=== PATIENT | female | born 1970 | race Caucasian/White ===

== ENCOUNTER 2016-10-26 20:19 | Emergency (ER) | payer SELFPAY ==
--- NOTE | 2016-10-26 21:07 | ED NURSING NOTES ---
Clinical Report - Nurses [facility] [address] [place] [address] 10/26/2016 20:23 Patient: YURIY AVILES TRIAGE Triage time 20:28. Acuity: LEVEL 4. Chief Complaint: INJURY TO LEFT FOOT. Alert. PAVAN COMA SCORE: Pavan Coma Scale: 15- eyes open spontaneously (4); best verbal response- oriented x 4 (5); best motor response- obeys commands (6). --20:30 Artis Mullins R.N. 20:27 10/26/16. BP: 125/75. HR: 90. RR: 20. O2 saturation: 100% on room air. Temp: 98.2 F. Pain level now: 03/05. --20:30 Artis Mullins R.N. Chief Complaint: INJURY TO THE LEFT FOOT. --20:31 Artis Mullins R.N. Weight: 74.8 kg stated. Height/Length: 64 inches Per Patient. BMI: 28.3. --20:26 Artis Mullins R.N. Medications PredniSONE Oral 20 mg, daily (tapering ). --20:28 Artis Mullins R.N. Allergies PCN. --20:28 Artis Mullins R.N. History Arrived by private vehicle. Historian: patient. Accompanied by friend. This occurred just prior to arrival. ( puncture). PAST MEDICAL HX: Tetanus status: up-to-date. SOCIAL HX: Heavy tobacco smoker (cigarette)- 1-2 packs per day. History of heavy drug use: marijuana. No alcohol use. ( Denies HI/SI). SELF HARM ASSESSMENT: A self harm assessment was performed. The patient answered "no" to the question "Do you have thoughts of harming or killing yourself?" and "Are you here because you tried to hurt yourself?". FALL RISK ASSESSMENT: Fall risk assessment completed. No fall risk identified. NUTRITIONAL RISK ASSESSMENT: The nutritional risk assessment revealed no deficiencies. FUNCTIONAL ASSESSMENT: Functional assessment: no impairments noted. LEARNING NEEDS ASSESSMENT: The learning needs assessment revealed no barriers. --20:30 Artis Mullins R.N. ( pt states that she was working at home barefoot and stepped on a wire). --20:31 Artis Mullins R.N. PROBLEMS: Vaginitis. Otitis Externa. Laceration. Tetanus Status. Immunizations. Crohn's Disease. --20:28 Artis Mullins R.N. ADDITIONAL SURGERIES: Breast Augmentation. Facial surgery . Tonsillectomy. Tubal Ligation. --20:28 Artis Mullins R.N. Interventions ID band on patient. To treatment room. --20:30 Artis Mullins R.N. PHYSICAL ASSESSMENT To room via wheelchair. GENERAL / NEURO / PSYCH: Oriented X 4. Alert. SKIN: Skin is warm and dry. ( Patient has a piece of wire punctured into the bottom of her left foot). --20:32 Artis Mullins R.N. NURSING PROGRESS NOTES Reassurance given. Two patient identifiers checked. Call light placed in reach. Side rails up x 1. Bed placed in lowest position. Brakes of bed on. Patient ready for evaluation- chart flagged. Patient waiting for evaluation. --20:33 Artis Mullins R.N. 20:55 10/26/2016 Keflex (Cephalexin) PO 500 mg given. Allergies verified and confirmed 5 rights. --20:55 Artis Mullins R.N. 20:56 10/26/2016 TDAP IM 0.5 mL given. (Lot#: [id number], expiration date: 04/02/2018, Br[employer]her Tender: sanofi pasteur). Given in the left deltoid. Allergies verified and confirmed 5 rights. Vaccine information statement provided to the patient. --20:56 Artis Mullins R.N. ( 5: wound Irrigation Left foot; applied bacitracin and then bandaid). --21:19 Carissa Coffey. DISPOSITION / DISCHARGE Departure time: 21:22. Condition at departure: stable. No learning barriers present. Discharge instructions provided and reviewed with the patient. Reviewed medication(s) side effects, precautions, dosing and course information. Prescription(s) given to the patient. Treatments reviewed. Reviewed referrals for followup. Patient verbalized understanding. Written instructions provided in Tanzanian. The patient was discharged home and unaccompanied at time of discharge. She left the Emergency Department ambulatory and via (unknown). Driving (unknown). ( Patient walking without difficulty). --21:23 Artis Mullins R.N. 21:21 10/26/16. BP: 127/83 taken while standing. HR: 83. RR: 12 (regular and unlabored). O2 saturation: 98% on room air. --21:23 Artis Mullins R.N. Locked/Released at 10/26/2016 21:23 by Artis Mullins R.N.
--- NOTE | 2016-10-26 21:07 | ED ORDER SUMMARY ---
..... Patient: YURIY AVILES OrderSheet [facility] VisitID: [id number] [place] [address] 45y, F Registration Date/Time: 10/26/2016 ORDER SHEET Weight: 74.8 kg (stated) Allergies: PCN GENERAL ORDERS: Foot 3V Left Urgent (20:49 10/26/2016 EKoroleva P.A.-C) (Ack 20:57 Mauricio [facility] Sales Representative Printing) [facility] Wound Irrigation (and application of bacitracin / bandaid post irrigaiton (LEFT FOOT)) (20:59 10/26/2016 EKoroleva P.A.-C) (21:21 DDavis R.N.) MEDICATION ORDERS: Tdap IM 0.5 mL (NOW, per protocol) (20:48 10/26/2016 EKoroleva P.A.-C) (20:56 DDavis R.N.) Keflex PO 500 mg (NOW) (20:48 10/26/2016 EKoroleva P.A.-C) (20:55 DDavis R.N.) IV FLUIDS: ORDER SHEET NOTES: [Electronically signed by Artis Mullins R.N. (21:23 10/26/2016)] [Electronically signed by Breana OrdoñezA.-C (21:43 10/26/2016)] [Electronically locked/signed by Artis Mullins R.N. (21:23 10/26/2016)]
--- NOTE | 2016-10-26 21:07 | ED CLINICAL REPORT ---
Clinical Report - Physicians/Mid Levels [facility] [address] [place] [address] 10/26/2016 20:23 [id number] Time Seen: 20:50 Oct 26 2016. Arrived- By private vehicle. Historian- patient. HISTORY OF PRESENT ILLNESS Chief Complaint: Injury to the left foot. The injury happened just prior to arrival. The patient sustained a laceration. Patient is experiencing mild pain. Patient denies injury to the head. (Patient sustained a puncture wound from a coat wire prior to arrival.). REVIEW OF SYSTEMS The patient sustained a laceration. She complains of pain on weight bearing. All systems otherwise negative, except as recorded above. PAST HISTORY tdap about 5 years. She has not had a prior injury to the same area. SOCIAL HISTORY Current every day heavy tobacco smoker. History of drug use. No alcohol use. ADDITIONAL NOTES The nursing notes have been reviewed. PHYSICAL EXAM Vital Signs: 10/26/2016 20:27 BP: 125/75. HR: 90. RR: 20. O2 saturation: 100%. Temp: 98.2 F. Pain level now: 9/10. Appearance: Alert. No acute distress. Head: Head atraumatic. CVS: Normal heart rate and rhythm. Heart sounds normal. Respiratory: No respiratory distress. Breath sounds normal. Chest nontender. No decreased air movement or chest wall injury. Skin: Skin warm. Extremities: Left foot, plantar aspect. (mid foot small protrusion of wire from foot, no bleeding, good distal sensation and rom). Gait: Limping gait. Neuro, Vascular and Tendons: Vascular status intact. Sensation intact. Motor intact. LABS, X-RAYS, AND EKG Lt Foot X-ray: (no fb/ no fx mid foot at site of injury). PROGRESS AND PROCEDURES Removal of Soft Tissue Foreign Body: Time: Oct 26 2016. Time-out completed immediately before the procedure. The foreign body was metal. Located in the left foot. Prior to the procedure the risks, benefits and alternatives to the procedure were explained and consent was obtained. Local anesthesia provided using 1% lidocaine with epinephrine. Foreign body visualized and removed using hemostat. Wound irrigated. Dressing applied. Tetanus immunization given. Warnings provided. Course of Care: Patient here in the air with signs of left foot injury with a penetrating wound, metal in nature. Patient is very stable. No signs of acute infection. Patient with resolution of her symptoms after removal of such. Tolerated such well. Tetanus updated. Irrigated/ dressings applied. Patient is stable. Symptoms better. Patient/family counseled. Disposition: Discharged. CLINICAL IMPRESSION Removal of metal soft tissue foreign body to the left foot. Puncture wound present. INSTRUCTIONS Apply ice. Protect wound and keep wound area clean. Apply bacitracin twice daily. Elevate affected areas above chest level. Warnings: TETANUS: You were given a tetanus shot during your visit. Make a note for future reference. Prescription Medications: Cephalexin 500mg: take 1 tab orally every 6 hours for 7 days. No refills OTC Medications: Take OTC medications according to label instructions. Available over the counter. Acetaminophen (available over the counter): take according to label instructions. Motrin (available over the counter): take according to label instructions. Follow-up: Follow up with your doctor in our community hospital for wound check. (Electronically signed by Breana Ordoñez P.A.-C 10/26/2016 21:43)
--- NOTE | 2016-10-26 21:07 | ED CLINICAL REPORT ---
Clinical Report - Physicians/Mid Levels [facility] [address] [place] [address] 10/26/2016 20:23 [id number] Time Seen: 20:50 Oct 26 2016. Arrived- By private vehicle. Historian- patient. HISTORY OF PRESENT ILLNESS Chief Complaint: Injury to the left foot. The injury happened just prior to arrival. The patient sustained a laceration. Patient is experiencing mild pain. Patient denies injury to the head. (Patient sustained a puncture wound from a coat wire prior to arrival.). REVIEW OF SYSTEMS The patient sustained a laceration. She complains of pain on weight bearing. All systems otherwise negative, except as recorded above. PAST HISTORY tdap about 5 years. She has not had a prior injury to the same area. SOCIAL HISTORY Current every day heavy tobacco smoker. History of drug use. No alcohol use. ADDITIONAL NOTES The nursing notes have been reviewed. PHYSICAL EXAM Vital Signs: 10/26/2016 20:27 BP: 125/75. HR: 90. RR: 20. O2 saturation: 100%. Temp: 98.2 F. Pain level now: 9/10. Appearance: Alert. No acute distress. Head: Head atraumatic. CVS: Normal heart rate and rhythm. Heart sounds normal. Respiratory: No respiratory distress. Breath sounds normal. Chest nontender. No decreased air movement or chest wall injury. Skin: Skin warm. Extremities: Left foot, plantar aspect. (mid foot small protrusion of wire from foot, no bleeding, good distal sensation and rom). Gait: Limping gait. Neuro, Vascular and Tendons: Vascular status intact. Sensation intact. Motor intact. LABS, X-RAYS, AND EKG Lt Foot X-ray: (no fb/ no fx mid foot at site of injury). PROGRESS AND PROCEDURES Removal of Soft Tissue Foreign Body: Time: Oct 26 2016. Time-out completed immediately before the procedure. The foreign body was metal. Located in the left foot. Prior to the procedure the risks, benefits and alternatives to the procedure were explained and consent was obtained. Local anesthesia provided using 1% lidocaine with epinephrine. Foreign body visualized and removed using hemostat. Wound irrigated. Dressing applied. Tetanus immunization given. Warnings provided. Course of Care: Patient here in the air with signs of left foot injury with a penetrating wound, metal in nature. Patient is very stable. No signs of acute infection. Patient with resolution of her symptoms after removal of such. Tolerated such well. Tetanus updated. Irrigated/ dressings applied. Patient is stable. Symptoms better. Patient/family counseled. Disposition: Discharged. CLINICAL IMPRESSION Removal of metal soft tissue foreign body to the left foot. Puncture wound present. INSTRUCTIONS Apply ice. Protect wound and keep wound area clean. Apply bacitracin twice daily. Elevate affected areas above chest level. Warnings: TETANUS: You were given a tetanus shot during your visit. Make a note for future reference. Prescription Medications: Cephalexin 500mg: take 1 tab orally every 6 hours for 7 days. No refills OTC Medications: Take OTC medications according to label instructions. Available over the counter. Acetaminophen (available over the counter): take according to label instructions. Motrin (available over the counter): take according to label instructions. Follow-up: Follow up with [facility] doctor [facility]. (Electronically signed by Breana Ordoñez P.A.-C 10/26/2016 21:43)
--- NOTE | 2016-10-26 21:07 | ED ORDER SUMMARY ---
..... Patient: YURIY AVILES OrderSheet [facility] VisitID: [id number] [place] [address] 45y, F Registration Date/Time: 10/26/2016 ORDER SHEET Weight: 74.8 kg (stated) Allergies: PCN GENERAL ORDERS: Foot 3V Left Urgent (20:49 10/26/2016 EKoroleva P.A.-C) (Ack 20:57 Mauricio ER Press Setter) [facility] Wound Irrigation (and application of bacitracin / bandaid post irrigaiton (LEFT FOOT)) (20:59 10/26/2016 EKoroleva P.A.-C) (21:21 DDavis R.N.) MEDICATION ORDERS: Tdap IM 0.5 mL (NOW, per protocol) (20:48 10/26/2016 EKoroleva P.A.-C) (20:56 DDavis R.N.) Keflex PO 500 mg (NOW) (20:48 10/26/2016 EKoroleva P.A.-C) (20:55 DDavis R.N.) IV FLUIDS: ORDER SHEET NOTES: [Electronically signed by Artis Mullins R.N. (21:23 10/26/2016)] [Electronically signed by Breana OrdoñezA.-C (21:43 10/26/2016)] [Electronically locked/signed by Artis Mullins R.N. (21:23 10/26/2016)]
--- NOTE | 2016-10-26 21:07 | ED NURSING NOTES ---
Clinical Report - Nurses [facility] [address] [place] [address] 10/26/2016 20:23 Patient: YURIY AVILES TRIAGE Triage time 20:28. Acuity: LEVEL 4. Chief Complaint: INJURY TO LEFT FOOT. Alert. PAVAN COMA SCORE: Pavan Coma Scale: 15- eyes open spontaneously (4); best verbal response- oriented x 4 (5); best motor response- obeys commands (6). --20:30 Artis Mullins R.N. 20:27 10/26/16. BP: 125/75. HR: 90. RR: 20. O2 saturation: 100% on room air. Temp: 98.2 F. Pain level now: 03/05. --20:30 Artis Mullins R.N. Chief Complaint: INJURY TO THE LEFT FOOT. --20:31 Artis Mullins R.N. Weight: 74.8 kg stated. Height/Length: 64 inches Per Patient. BMI: 28.3. --20:26 Artis Mullins R.N. Medications PredniSONE Oral 20 mg, daily (tapering ). --20:28 Artis Mullins R.N. Allergies PCN. --20:28 Artis Mullins R.N. History Arrived by private vehicle. Historian: patient. Accompanied by friend. This occurred just prior to arrival. ( puncture). PAST MEDICAL HX: Tetanus status: up-to-date. SOCIAL HX: Heavy tobacco smoker (cigarette)- 1-2 packs per day. History of heavy drug use: marijuana. No alcohol use. ( Denies HI/SI). SELF HARM ASSESSMENT: A self harm assessment was performed. The patient answered "no" to the question "Do you have thoughts of harming or killing yourself?" and "Are you here because you tried to hurt yourself?". FALL RISK ASSESSMENT: Fall risk assessment completed. No fall risk identified. NUTRITIONAL RISK ASSESSMENT: The nutritional risk assessment revealed no deficiencies. FUNCTIONAL ASSESSMENT: Functional assessment: no impairments noted. LEARNING NEEDS ASSESSMENT: The learning needs assessment revealed no barriers. --20:30 Artis Mullins R.N. ( pt states that she was working at home barefoot and stepped on a wire). --20:31 Artis Mullins R.N. PROBLEMS: Vaginitis. Otitis Externa. Laceration. Tetanus Status. Immunizations. Crohn's Disease. --20:28 Artis Mullins R.N. ADDITIONAL SURGERIES: Breast Augmentation. Facial surgery . Tonsillectomy. Tubal Ligation. --20:28 Artis Mullins R.N. Interventions ID band on patient. To treatment room. --20:30 Artis Mullins R.N. PHYSICAL ASSESSMENT To room via wheelchair. GENERAL / NEURO / PSYCH: Oriented X 4. Alert. SKIN: Skin is warm and dry. ( Patient has a piece of wire punctured into the bottom of her left foot). --20:32 Artis Mullins R.N. NURSING PROGRESS NOTES Reassurance given. Two patient identifiers checked. Call light placed in reach. Side rails up x 1. Bed placed in lowest position. Brakes of bed on. Patient ready for evaluation- chart flagged. Patient waiting for evaluation. --20:33 Artis Mullins R.N. 20:55 10/26/2016 Keflex (Cephalexin) PO 500 mg given. Allergies verified and confirmed 5 rights. --20:55 Artis Mullins R.N. 20:56 10/26/2016 TDAP IM 0.5 mL given. (Lot#: [id number], expiration date: 04/02/2018, Product Designer: sanofi pasteur). Given in the left deltoid. Allergies verified and confirmed 5 rights. Vaccine information statement provided to the patient. --20:56 Artis Mullins R.N. ( 5: wound Irrigation Left foot; applied bacitracin and then bandaid). --21:19 Carissa Coffey. DISPOSITION / DISCHARGE Departure time: 21:22. Condition at departure: stable. No learning barriers present. Discharge instructions provided and reviewed with the patient. Reviewed medication(s) side effects, precautions, dosing and course information. Prescription(s) given to the patient. Treatments reviewed. Reviewed referrals for followup. Patient verbalized understanding. Written instructions provided in German. The patient was discharged home and unaccompanied at time of discharge. She left the Emergency Department ambulatory and via (unknown). Driving (unknown). ( Patient walking without difficulty). --21:23 Artis Mullins R.N. 21:21 10/26/16. BP: 127/83 taken while standing. HR: 83. RR: 12 (regular and unlabored). O2 saturation: 98% on room air. --21:23 Artis Mullins R.N. Locked/Released at 10/26/2016 21:23 by Artis Mullins R.N.
--- NOTE | 2016-10-26 21:33 | DIAGNOSTIC IMAGING REPORT ---
PROCEDURE: XR FOOT 3 VIEWS - LEFT INDICATION: Stepped on wire. TECHNIQUE: Four views . COMPARISON: None. FINDINGS: Osseous structures, joint spaces and soft tissues are normal. IMPRESSION: 1. Normal left foot.
--- NOTE | 2016-10-26 21:44 | ED MAR SUMMARY ---
..... Medication Administration Record [facility] [address] [place] [address] Patient: YURIY AVILES Visit ID: [id number] 45y, F Weight: 74.8 kg Height/Length: 64 in BMI: 28.3 ALLERGIES: PCN Given 20:55 10/26/2016 Artis Mullins R.N. Medication Administered: KEFLEX [PO] (CEPHALEXIN), Dose: 500 mg PO. Medication Ordered: Keflex PO 500 mg (NOW). Given 20:56 10/26/2016 Artis Mullins RCurtisN. Medication Administered: TDAP [IM], Dose: 0.5 mL IM. Medication Ordered: Tdap IM 0.5 mL (NOW, per protocol).
--- NOTE | 2016-10-26 21:44 | ED MED RECONCILIATION SUMMARY ---
Patient: YURIY AVILES Medication Reconciliation Report [facility] VisitID: [id number] [place] [address] 45y, F Registration Date/Time: 10/26/2016 Weight: 74.8 kg Height/Length: 64 in. BMI: 28.3 ALLERGIES: PCN The patient's Home Medications are listed below: THE FOLLOWING MEDICATIONS NEED TO BE RECONCILED: PredniSONE Oral 20 mg, daily, tapering The source(s) of the original Home Medication information: Not obtained. The following Medications were given to the patient in the Emergency Department: Keflex [PO] PO 500 mg, administered: 10/26/2016 8:55:00 PM TDAP [IM] IM 0.5 mL, administered: 10/26/2016 8:56:00 PM The following Medications were prescribed to the patient: Take OTC medications according to label instructions. Available over the counter. -- Breana Ordoñez, P.A.-C Acetaminophen (available over the counter): take according to label instructions. -- Breana Ordoñez, P.A.-C Motrin (available over the counter): take according to label instructions. -- Breana Ordoñez, P.A.-C Cephalexin 500mg: take 1 tab orally every 6 hours for 7 days. No refills -- Breana Ordoñez, P.A.-C
--- NOTE | 2016-10-26 21:44 | ED MED RECONCILIATION SUMMARY ---
Patient: YURIY AVILES Medication Reconciliation Report [facility] VisitID: [id number] [place] [address] 45y, F Registration Date/Time: 10/26/2016 Weight: 74.8 kg Height/Length: 64 in. BMI: 28.3 ALLERGIES: PCN The patient's Home Medications are listed below: THE FOLLOWING MEDICATIONS NEED TO BE RECONCILED: PredniSONE Oral 20 mg, daily, tapering The source(s) of the original Home Medication information: Not obtained. The following Medications were given to the patient in the Emergency Department: Keflex [PO] PO 500 mg, administered: 10/26/2016 8:55:00 PM TDAP [IM] IM 0.5 mL, administered: 10/26/2016 8:56:00 PM The following Medications were prescribed to the patient: Take OTC medications according to label instructions. Available over the counter. -- Breana Ordoñez, P.A.-C Acetaminophen (available over the counter): take according to label instructions. -- Breana Ordoñez, P.A.-C Motrin (available over the counter): take according to label instructions. -- Breana Ordoñez, P.A.-C Cephalexin 500mg: take 1 tab orally every 6 hours for 7 days. No refills -- Breana Ordoñez, P.A.-C
--- NOTE | 2016-10-26 21:44 | ED MAR SUMMARY ---
..... Medication Administration Record [facility] [address] [place] [address] Patient: YURIY AVILES Visit ID: [id number] 45y, F Weight: 74.8 kg Height/Length: 64 in BMI: 28.3 ALLERGIES: PCN Given 20:55 10/26/2016 Artis Mullins R.N. Medication Administered: KEFLEX [PO] (CEPHALEXIN), Dose: 500 mg PO. Medication Ordered: Keflex PO 500 mg (NOW). Given 20:56 10/26/2016 Artis Mullins RCurtisN. Medication Administered: TDAP [IM], Dose: 0.5 mL IM. Medication Ordered: Tdap IM 0.5 mL (NOW, per protocol).
--- NOTE | 2016-10-26 21:44 | ED DISCHARGE INSTRUCTIONS ---
Patient: YURIY AVILES General Instructions [facility] VisitID: [id number] [place] [address] 45y, F Registration Date/Time: 10/26/2016 Removal of metal soft tissue foreign body to the left foot. Puncture wound present. INSTRUCTIONS Apply ice. Protect wound and keep wound area clean. Apply bacitracin twice daily. Elevate affected areas above chest level. Warnings: TETANUS: You were given a tetanus shot during your visit. Make a note for future reference. Prescription Medications: Cephalexin 500mg: take 1 tab orally every 6 hours for 7 days. No refills OTC Medications: Take OTC medications according to label instructions. Available over the counter. Acetaminophen (available over the counter): take according to label instructions. Motrin (available over the counter): take according to label instructions. Follow-up: Follow up with your doctor in five for wound check. ADDITIONAL INFORMATION Foreign ObjectUnder The Skin, Removed An object has been removed from under your skin. Although care was taken to remove all particles present, there is always a chance that a small piece may have been left behind. Very small particles that remain under the skin usually cause no problem and need no further treatment. Home care The following guidelines will help you care for your wound at home: Keep the wound clean and dry. If a bandage was applied and it becomes wet or dirty, replace it. Otherwise, leave it in place for the first 24 hours, then change it once a day or as directed. Ifsutureswere used, clean the wound daily: After removing the bandage, wash the area with soap and water. After cleaning, apply a thin layer of antibiotic ointment. This will keep the wound clean and make it easier to remove the stitches. Reapply the bandage. You may shower as usual after the first 24 hours, but do not soak the area in water (no baths or swimming) until the sutures are removed. If asurgical tape closureswere used, keep the area clean and dry. If it becomes wet, blot it dry with a towel. You may use acetaminophen or ibuprofen to control pain, unless another pain medicine was prescribed.If you have chronic liver or kidney disease or ever had a stomach ulcer or GI bleeding, talk with your doctor before using these medicines. Follow-up care Most skin wounds heal within ten days. However, there is an increased risk of infection if there is any particle remaining under the skin. Therefore, check the wound daily for the signs listed below. Stitches should be removed within 714 days. If surgical tape closures were used, remove them after seven days unless told otherwise. Note:Any X-rays taken will be reviewed by a radiologist. You will be notified if there are new findings that may affect your care. When to seek medical care Get prompt medical attention if any of the following occur: Increasing pain in the wound Redness, swelling or pus coming from the wound Fever of 100.4F (38C) or higher, or as directed by your health care provider Diphtheria Toxoid Adsorbed, Pertussis Vaccine, Acellular (Adsorbed), Tetanus Toxoid, Adsorbed Suspension for injection What is this medicine? DIPHTHERIA and TETANUS TOXOIDS; PERTUSSIS VACCINE (dif THEER ee uh and TET n us TOK soids; per TUS iss lucyk SEEN) is used to prevent diphtheria, tetanus, and pertussis infections. How should I use this medicine? This vaccine is for injection into a muscle. It is given by a health workforce investment act career manager. A copy of Vaccine Information Statements will be given before each vaccination. Read this sheet carefully each time. The sheet may change frequently. Talk to your management trainee regarding the use of this vaccine in children. While the DTP vaccine may be given to children ages 6 weeks to 7 years and the Tdap vaccine may be given to children at least 10 years old, precautions do apply. What side effects may I notice from receiving this medicine? Side effects that you should report to your doctor or health workforce investment act career manager as soon as possible: allergic reactions like skin rash, itching or hives, swelling of the face, lips, or tongue breathing problems fever of 103 degrees F or more flu-like symptoms inconsolable crying infection pain, tingling, numbness in the hands or feet seizures swelling of arm or leg that was injected unusually weak or tired Side effects that usually do not require immediate medical attention (report these side effects to your doctor or health workforce investment act career manager if they continue or are bothersome): fussy, irritable loss of appetite fever of 102 degrees F or less pain, tenderness, redness, swelling, or a 'knot' at site where injected vomiting What may interact with this medicine? immune globulin medicines that suppress your immune function like adalimumab, anakinra, infliximab medicines to treat cancer medicines that treat or prevent blood clots like warfarin, enoxaparin, and dalteparin steroid medicines like prednisone or cortisone What if I miss a dose? It is important not to miss your dose. Call your doctor or health workforce investment act career manager if you are unable to keep an appointment. Where should I keep my medicine? This drug is given in a hospital or clinic and will not be stored at home. What should I tell my health care provider before I take this medicine? They need to know if you have any of these conditions: blood disorders like hemophilia fever or infection immune system problems neurologic disease seizures an unusual or allergic reaction to vaccines, thimerosal, latex, other medicines, foods, dyes, or preservatives or trying to get breast-feeding What should I watch for while using this medicine? See your health care provider for all shots of this vaccine as directed. To have protection from infection, you must have 3 shots of this vaccine plus boosters as needed. Tell your doctor right away if you have any serious or unusual side effects after getting this vaccine. You have been given the following additional information: Foreign Body, Soft Tissue (Removed) Diphtheria Toxoid Adsorbed, Pertussis Vaccine, Acellular (Adsorbed), Tetanus Toxoid, Adsorbed Suspension for injection (Electronically signed by Breana Ordoñez P.A.-C 10/26/2016 21:43)
--- NOTE | 2016-10-26 21:44 | ED DISCHARGE INSTRUCTIONS ---
Patient: YURIY AVILES General Instructions [facility] VisitID: [id number] [place] [address] 45y, F Registration Date/Time: 10/26/2016 Removal of metal soft tissue foreign body to the left foot. Puncture wound present. INSTRUCTIONS Apply ice. Protect wound and keep wound area clean. Apply bacitracin twice daily. Elevate affected areas above chest level. Warnings: TETANUS: You were given a tetanus shot during your visit. Make a note for future reference. Prescription Medications: Cephalexin 500mg: take 1 tab orally every 6 hours for 7 days. No refills OTC Medications: Take OTC medications according to label instructions. Available over the counter. Acetaminophen (available over the counter): take according to label instructions. Motrin (available over the counter): take according to label instructions. Follow-up: Follow up with your doctor in five for wound check. ADDITIONAL INFORMATION Foreign ObjectUnder The Skin, Removed An object has been removed from under your skin. Although care was taken to remove all particles present, there is always a chance that a small piece may have been left behind. Very small particles that remain under the skin usually cause no problem and need no further treatment. Home care The following guidelines will help you care for your wound at home: Keep the wound clean and dry. If a bandage was applied and it becomes wet or dirty, replace it. Otherwise, leave it in place for the first 24 hours, then change it once a day or as directed. Ifsutureswere used, clean the wound daily: After removing the bandage, wash the area with soap and water. After cleaning, apply a thin layer of antibiotic ointment. This will keep the wound clean and make it easier to remove the stitches. Reapply the bandage. You may shower as usual after the first 24 hours, but do not soak the area in water (no baths or swimming) until the sutures are removed. If asurgical tape closureswere used, keep the area clean and dry. If it becomes wet, blot it dry with a towel. You may use acetaminophen or ibuprofen to control pain, unless another pain medicine was prescribed.If you have chronic liver or kidney disease or ever had a stomach ulcer or GI bleeding, talk with your doctor before using these medicines. Follow-up care Most skin wounds heal within ten days. However, there is an increased risk of infection if there is any particle remaining under the skin. Therefore, check the wound daily for the signs listed below. Stitches should be removed within 714 days. If surgical tape closures were used, remove them after seven days unless told otherwise. Note:Any X-rays taken will be reviewed by a radiologist. You will be notified if there are new findings that may affect your care. When to seek medical care Get prompt medical attention if any of the following occur: Increasing pain in the wound Redness, swelling or pus coming from the wound Fever of 100.4F (38C) or higher, or as directed by your health care provider Diphtheria Toxoid Adsorbed, Pertussis Vaccine, Acellular (Adsorbed), Tetanus Toxoid, Adsorbed Suspension for injection What is this medicine? DIPHTHERIA and TETANUS TOXOIDS; PERTUSSIS VACCINE (dif THEER ee uh and TET n us TOK soids; per TUS iss lucyk SEEN) is used to prevent diphtheria, tetanus, and pertussis infections. How should I use this medicine? This vaccine is for injection into a muscle. It is given by a health daycare teacher. A copy of Vaccine Information Statements will be given before each vaccination. Read this sheet carefully each time. The sheet may change frequently. Talk to your security tester regarding the use of this vaccine in children. While the DTP vaccine may be given to children ages 6 weeks to 7 years and the Tdap vaccine may be given to children at least 10 years old, precautions do apply. What side effects may I notice from receiving this medicine? Side effects that you should report to your doctor or health daycare teacher as soon as possible: allergic reactions like skin rash, itching or hives, swelling of the face, lips, or tongue breathing problems fever of 103 degrees F or more flu-like symptoms inconsolable crying infection pain, tingling, numbness in the hands or feet seizures swelling of arm or leg that was injected unusually weak or tired Side effects that usually do not require immediate medical attention (report these side effects to your doctor or health daycare teacher if they continue or are bothersome): fussy, irritable loss of appetite fever of 102 degrees F or less pain, tenderness, redness, swelling, or a 'knot' at site where injected vomiting What may interact with this medicine? immune globulin medicines that suppress your immune function like adalimumab, anakinra, infliximab medicines to treat cancer medicines that treat or prevent blood clots like warfarin, enoxaparin, and dalteparin steroid medicines like prednisone or cortisone What if I miss a dose? It is important not to miss your dose. Call your doctor or health daycare teacher if you are unable to keep an appointment. Where should I keep my medicine? This drug is given in a hospital or clinic and will not be stored at home. What should I tell my health care provider before I take this medicine? They need to know if you have any of these conditions: blood disorders like hemophilia fever or infection immune system problems neurologic disease seizures an unusual or allergic reaction to vaccines, thimerosal, latex, other medicines, foods, dyes, or preservatives or trying to get breast-feeding What should I watch for while using this medicine? See your health care provider for all shots of this vaccine as directed. To have protection from infection, you must have 3 shots of this vaccine plus boosters as needed. Tell your doctor right away if you have any serious or unusual side effects after getting this vaccine. You have been given the following additional information: Foreign Body, Soft Tissue (Removed) Diphtheria Toxoid Adsorbed, Pertussis Vaccine, Acellular (Adsorbed), Tetanus Toxoid, Adsorbed Suspension for injection (Electronically signed by Breana Ordoñez P.A.-C 10/26/2016 21:43)
== END 2016-10-26 21:23 | disposition home or self-care (01) ==
LOC: ED SRH 20:19
DX: S91.342A Puncture wound with foreign body, left foot, initial encounter (principal); W45.8XXA Other foreign body or object entering through skin, initial encounter; Y93.9 Activity, unspecified; Y99.9 Unspecified external cause status; Y92.9 Unspecified place or not applicable; Z79.899 Other long term (current) drug therapy; F17.210 Nicotine dependence, cigarettes, uncomplicated; Z88.0 Allergy status to penicillin; Z23 Encounter for immunization